=== PATIENT | female | born 1955 | race Caucasian/White ===

== ENCOUNTER 2020-05-28 13:28 | Emergency (ER) | payer BC, SELFPAY ==
[2020-05-28] VITALS (12 sets, daily range): BP systolic 121–174; BP diastolic 66–87; PULSE 67–84; RESP 16–19; TEMP 37; O2SAT 97–100; BMI 31.8
--- NOTE | 2020-05-28 13:33 | ECG_ITS ---
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 Measurements Intervals [place] Rate: 74 P: 37 ID: [id number] QRS: 1 QRSD: 95 T: 18 QT: 369 QTc: 410 Interpretive Statements SINUS RHYTHM INCOMPLETE RIGHT BUNDLE BRANCH BLOCK [90+ ms QRS DURATION, TERMINAL R IN V1/V2, 40+ ms S IN I/aVL/V4/V5/V6] No previous ECG available for comparison Electronically Signed On 05-30-2020 8:04:33 CDT by Amy Shay M.D. [id number]
--- NOTE | 2020-05-28 13:33 | XRR_ITS ---
PROCEDURE INFORMATION: Exam: XR Chest, 1 View Exam date and time: 05/28/2020 1:34 PM Age: 64 years old Clinical indication: Pain; Angina pectoris; Additional info: Chest pain TECHNIQUE: Imaging protocol: XR of the chest Views: 1 view. COMPARISON: No relevant prior studies available. FINDINGS: Lungs: Unremarkable. No consolidation. Pleural space: Unremarkable. No pleural effusion. No pneumothorax. Heart/Mediastinum: Unremarkable. No cardiomegaly. Bones/joints: Dorsal spine dextroscoliosis XR/XR chest 1V portable [id number] IMPRESSION: 1. No acute findings. 2. Dorsal spine dextroscoliosis
--- NOTE | 2020-05-28 13:47 | ED_ITS ---
HPI - Chest Pain General: Chief Complaint: Chest Pain Stated Complaint: cp Time Seen by Provider: 05/28/20 13:34 Source: patient Mode of arrival: ambulatory Limitations: no limitations History of Present Illness: HPI narrative: Ms. Fleming is a nice 64-year-old female who comes in complaining of abrupt onset chest pain while driving. Patient states the discomfort feels like a pressure that radiates up into her jaw and through to her back. She denies any leg pain or swelling. Patient denies having any similar symptoms recently. Patient did get diaphoretic and was nauseated with this. She is unaware if this point of any aggravating or alleviating factors. Patient is not a smoker there is no family history of heart disease. She personally has no history of DVT or PE. Patient has been traveling here from [facility] and the [facility] for vacation. Patient states the pain is been constant since it started at 1:03 PM. Associated symptoms: Reports diaphoresis and dyspnea; Deny abdominal pain, fever(s), palpitations, syncope or vomiting Review of Systems Const: Reports: diaphoresis; Denies: fever(s), chills, body aches, fatigue or malaise Eyes: Denies: change in vision, blurry vision, photophobia, eye discomfort, eye discharge or eye redness ENMT: Denies: throat pain, odynophagia, hoarseness, swelling of lips/tongue, ear or mastoid pain, ear discharge, change in hearing or nasal discharge Card: Reports: chest pain; Denies: palpitations, irregular heart rhythm, edema, lightheadedness, syncope, pre-syncope, dyspnea on exertion or orthopnea Resp: Reports: dyspnea; Denies: productive cough, non-productive cough, wheezing, hemoptysis or chest congestion GI: Denies: abdominal pain, vomiting, hematemesis, coffee ground emesis, heartburn, diarrhea, constipation, GI cramping, hematochezia or melena : Denies: flank pain, dysuria, urinary frequency, urinary urgency or hematuria Musc: Denies: neck pain, back pain, extremity pain, extremity swelling, joint pain, joint swelling, joint redness, joint warmth or joint stiffness Skin/Breast: Denies: rash, pruritus, erythema or skin tenderness Neuro: Denies: headache(s), numbness in extremities, weakness in extremities, sensory changes, lack of coordination, difficulty walking, dizziness, vertigo, confusion, Slurred speech present or seizure-like activity Laureano/Lymph: Denies: easy bruising, easy bleeding, petechiae, purpura or enlarged lymph nodes All/Imm: Denies: urticaria, throat swelling, tongue swelling, facial swelling or acute wheezing PFSH ED PFSH: Medical History (Updated 05/28/20 @ 17:57 by Meredith Cornelius) Anxiety Hyperlipidemia Hypertension Social History (Updated 05/28/20 @ 13:48 by Meredith Cornelius) Smoking and tobacco status: never smoked Physical Exam Const: COMMON NORMALS: no acute distress, patient oriented x3, no limitations, healthy appearing and well nourished GENERAL APPEARANCE: cooperative, well kempt and well developed HENMT: COMMON NORMALS: normocephalic, atraumatic, external ears normal, EAC's normal and Normal external nose present HEAD & SCALP: normal to inspection, normocephalic and atraumatic FACE & SINUS: normal facial exam and face symmetric NOSE: Normal external nose present and Normal nares present EXTERNAL EAR: Yes external ears normal EXTERNAL AUDITORY CANAL: EAC's normal MOUTH: Normal oral and palatal mucosa present, lip normal and tongue normal Eye: COMMON NORMALS: Equal, round and reactive pupils present and conjunctivae normal GENERAL EYE: appearance normal, both eyes and all related structures ALIGNMENT: Yes alignment normal PERIORBITAL: periorbital findings normal EYELID: eyelids normal CONJUNCTIVA: Yes conjunctivae normal SCLERA: sclerae normal PUPIL: Yes Equal, round and reactive pupils present Neck/C-Spine: COMMON NORMALS: full ROM, no lymphadenopathy, supple, no men ingeal signs and no JVD GENERAL: Yes normal visual inspection and Yes trachea midline Chest: COMMONS NORMALS: normal inspection of the chest and normal palpation of entire chest wall Resp: COMMON NORMALS: normal respiratory effort, No retractions, No use of accessory muscles and clear to auscultation bilaterally EFFORT & INSPECTION: Yes able to speak in complete sentences and Yes symmetric chest movement AUSCULTATION: clear to auscultation bilaterally, no crackles, no rales, no rhonchi and no wheezes Cardio: COMMON NORMALS: no JVD, regular rate, regular rhythm, S1 normal heart sound present and S2 normal heart sound present RATE: regular rate RHYTHM: regular rhythm HEART SOUNDS: S1 normal heart sound present, S2 normal heart sound present, no click, no gallops, no murmurs, no rubs and abnormal split S2 GI: COMMON NORMALS: Soft to palpation and No hepatosplenomegaly present PALPATION: Yes Soft to palpation, No Tenderness to palpation present (GI), No Guarding due to palpation present (GI), No Rigid due to palpation, Yes No hepatosplenomegaly present, No Hernia present, No Palpable mass present and No Pulsatile mass present : COMMON NORMALS: Yes no CVA tenderness BLADDER/KIDNEY EXAM: Yes no CVA tenderness EXTERNAL FEMALE EXAM: No Hernia present Back/Pelvis: COMMON NORMALS: no CVA tenderness, thoracic and lumbar spine normal to inspection, no thoracic nor lumbar tenderness and thoraco-lumbar ROM normal Extremity: COMMON NORMALS: normal to inspection, full ROM, capillary refill normal, no joint enlargement, no clubbing, cyanosis or edema and no calf tenderness Neuro: COMMON NORMALS: patient oriented x3, CN's II-XII intact bilaterally, moves all extremities, no focal motor deficits and no sensory deficits noted MENINGEAL SIGNS: Yes no meningeal signs SPEECH: speech normal Psych: COMMON NORMALS: mental status grossly normal, Normal thought process present, cooperative, normal affect, speech normal and activity/motor behavior normal APPEARANCE: Yes well kempt SPEECH: Yes normal speech THOUGHT PROCESS: Normal thought process present Skin: COMMON NORMALS: no rashes or lesions noted, turgor normal, no jaundice, no petechiae and no mottling GENERAL SKIN EXAM: no rashes or lesions noted and turgor normal Course ED course: 1701 -the patient's heart score is a 3. The concerning thing at this time she has continued pain ever since this started the nitroglycerin sublingual's, Nitropaste and morphine have only gotten her pain down to a 3 out of 10. I am going to go ahead and add an ultrasound as the patient has just a minimal bump in her lipase. I am also going to try a GI cocktail. I will add an H. pylori test to her labs as well. I did review the case with Dr. Shay who confirms that we will not be able to do stress test until Saturday as this is a holiday weekend. I discussed with the patient staying for stress test but she is adamant she does not want to stay in the hospital through till Saturday for this test. Vital Signs: Vital signs: Vital Signs Temperature 98.6 F 05/28/20 13:41 Pulse Rate 69 05/28/20 18:01 Respiratory Rate 18 05/28/20 18:01 Blood Pressure 139/80 05/28/20 18:01 Pulse Oximetry 99 05/28/20 18:01 MDM - Chest Pain MDM Narrative: Medical decision making narrative: Ms. Fleming is a very nice 64-year-old female who comes in complaining of chest pain that was abrupt in onset while driving. Per the [place] criteria the patient is low risk and has a negative d-dimer therefore ruling out pulmonary embolism as a cause for her symptoms. The patient has a heart score of 3 but because of continued pain I have recommended she stay in the hospital for formal cardiac rule out but she declines. I have discussed with Mary at length that her symptoms could be related to her heart and she states that she does understand this but she refuses admission to the hospital for formal cardiac rule out. I have tried to get a CTA of the coronary arteries but we do not yet have that ability. The patient's pain is been constant for over 3 hours at this point and with 2- EKGs and 2- sets of cardiac enzymes I believe this rules her out per our hospitalist chest pain pathway. Nonetheless because the patient's pain is continuous I have recommended and offered to put her in the hospital as I have informed her I believe this would be the safest thing but she declines. The patient clearly has the capacity to make this decision but does not want to come in. Her supports her decision. They do understand they can change their mind and return here at any time. Patient agrees to follow-up with her doctor back in [facility] when she returns home. At this time she is feeling better although she still has a chest pain of 2 out of 10. Patient has been in warned but she is also been welcomed to return. Lab Data: Labs: Lab Results 05/28/20 05/28/20 05/28/20 Range/Units 14:13 14:13 14:13 WBC 10.5 H (4.0-10.0) 10^3/ uL RBC 4.79 (4.1-5.3) 10^6/u L Hgb 14.1 (11.5-15.3) g/dL Hct 42.2 (37.0-47.0) % MCV 88.1 (81-99) fL MCH 29.4 (28.0-34.0) pg MCHC 33.4 (30.0-36.0) g/dL RDW 13.2 (12.1-15.1) % Plt Count 302 (130-400) 10^3/c mm MPV 9.3 (7.4-10.4) fL Neut % (Auto) 61.0 % Lymph % (Auto) 29.8 % Mcintosh % (Auto) 7.4 % Eos % (Auto) 0.7 % Baso % (Auto) 0.6 % Neut # (Auto) 6.40 (1.8-7.7) 10^3/u L Lymph # (Auto) 3.1 (0.8-4.8) 10^3/u L Mcintosh # (Auto) 0.8 (0.2-0.9) 10^3/u L Eos # (Auto) 0.1 (0.0-0.8) 10^3/u L Baso # (Auto) 0.1 (0.0-0.1) 10^3/u L Nucleated RBC % (a uto) 0 % Nucleated RBCs # 0.0 /100WBC D-Dimer (0-0.59) ug/mIFE U Sodium 137 (136-145) mmol/L Potassium 4.2 (3.5-5.1) mmol/L Chloride 102 (98-107) mmol/L Carbon Dioxide 25 (22-29) mmol/L Anion Gap 14.2 (5-19) BUN 13 (8-23) mg/dL Creatinine 0.7 (0.5-0.9) mg/dL GFR Calculation 84.8 L (90-130) mL/min Glucose 92 (65-115) mg/dL Calculated Osmolal ity 280 L (285-295) mOsm/k g Calcium 9.4 (8.5-10.5) mg/dL Total Bilirubin 0.5 (0.15-1.2) mg/dL AST 18 (0-32) U/L ALT 29 (0-33) U/L Alkaline Phosphata se 122 H (35-105) IU/L Troponin T Baselin e 6 (0-10) ng/L Troponin T 120 [place] (0-10) ng/L Delta Troponin T (0-10) ABS# Total Protein 6.7 (6.6-8.7) g/dL Albumin 4.4 (3.5-5.2) g/dL Globulin 2.3 (1.3-4.6) g/dL Lipase 76 H (13-60) U/L Urine Color (Yellow) Urine Appearance (CLEAR) Urine pH (5-7) Ur Specific Gravit y (1.005-1.030) Urine Protein (Negative) Urine Glucose (UA) (Normal) Urine Ketones (Negative) Urine Blood (Negative) Urine Nitrate (Negative) Urine Bilirubin (NEGATIVE) Urine Urobilinogen (Negative) mg/dL Ur Leukocyte Pennie ase (Negative) H. pylori IgG Anti body (Negative) 05/28/20 05/28/20 05/28/20 Range/Units 14:13 14:13 14:50 WBC (4.0-10.0) 10^3/ uL RBC (4.1-5.3) 10^6/u L Hgb (11.5-15.3) g/dL Hct (37.0-47.0) % MCV (81-99) fL MCH (28.0-34.0) pg MCHC (30.0-36.0) g/dL RDW (12.1-15.1) % Plt Count (130-400) 10^3/c mm MPV (7.4-10.4) fL Neut % (Auto) % Lymph % (Auto) % Mcintosh % (Auto) % Eos % (Auto) % Baso % (Auto) % Neut # (Auto) (1.8-7.7) 10^3/u L Lymph # (Auto) (0.8-4.8) 10^3/u L Mcintosh # (Auto) (0.2-0.9) 10^3/u L Eos # (Auto) (0.0-0.8) 10^3/u L Baso # (Auto) (0.0-0.1) 10^3/u L Nucleated RBC % (a uto) % Nucleated RBCs # /100WBC D-Dimer 0.42 (0-0.59) ug/mIFE U Sodium (136-145) mmol/L Potassium (3.5-5.1) mmol/L Chloride (98-107) mmol/L Carbon Dioxide (22-29) mmol/L Anion Gap (5-19) BUN (8-23) mg/dL Creatinine (0.5-0.9) mg/dL GFR Calculation (90-130) mL/min Glucose (65-115) mg/dL Calculated Osmolal ity (285-295) mOsm/k g Calcium (8.5-10.5) mg/dL Total Bilirubin (0.15-1.2) mg/dL AST (0-32) U/L ALT (0-33) U/L Alkaline Phosphata se (35-105) IU/L Troponin T Baselin e (0-10) ng/L Troponin T 120 [place] (0-10) ng/L Delta Troponin T (0-10) ABS# Total Protein (6.6-8.7) g/dL Albumin (3.5-5.2) g/dL Globulin (1.3-4.6) g/dL Lipase (13-60) U/L Urine Color Yellow (Yellow) Urine Appearance Clear (CLEAR) Urine pH 7 (5-7) Ur Specific Gravit y 1.010 (1.005-1.030) Urine Protein Neg (Negative) Urine Glucose (UA) Norm (Normal) Urine Ketones Negative (Negative) Urine Blood Neg (Negative) Urine Nitrate Negative (Negative) Urine Bilirubin Neg (NEGATIVE) Urine Urobilinogen Norm (Negative) mg/dL Ur Leukocyte Pennie ase Negative (Negative) H. pylori IgG Anti body Negative (Negative) 05/28/20 Range/Units 16:21 WBC (4.0-10.0) 10^3/ uL RBC (4.1-5.3) 10^6/u L Hgb (11.5-15.3) g/dL Hct (37.0-47.0) % MCV (81-99) fL MCH (28.0-34.0) pg MCHC (30.0-36.0) g/dL RDW (12.1-15.1) % Plt Count (130-400) 10^3/c mm MPV (7.4-10.4) fL Neut % (Auto) % Lymph % (Auto) % Mcintosh % (Auto) % Eos % (Auto) % Baso % (Auto) % Neut # (Auto) (1.8-7.7) 10^3/u L Lymph # (Auto) (0.8-4.8) 10^3/u L Mcintosh # (Auto) (0.2-0.9) 10^3/u L Eos # (Auto) (0.0-0.8) 10^3/u L Baso # (Auto) (0.0-0.1) 10^3/u L Nucleated RBC % (a uto) % Nucleated RBCs # /100WBC D-Dimer (0-0.59) ug/mIFE U Sodium (136-145) mmol/L Potassium (3.5-5.1) mmol/L Chloride (98-107) mmol/L Carbon Dioxide (22-29) mmol/L Anion Gap (5-19) BUN (8-23) mg/dL Creatinine (0.5-0.9) mg/dL GFR Calculation (90-130) mL/min Glucose (65-115) mg/dL Calculated Osmolal ity (285-295) mOsm/k g Calcium (8.5-10.5) mg/dL Total Bilirubin (0.15-1.2) mg/dL AST (0-32) U/L ALT (0-33) U/L Alkaline Phosphata se (35-105) IU/L Troponin T Baselin e (0-10) ng/L Troponin T 120 [place] 6.00 (0-10) ng/L Delta Troponin T 0 (0-10) ABS# Total Protein (6.6-8.7) g/dL Albumin (3.5-5.2) g/dL Globulin (1.3-4.6) g/dL Lipase (13-60) U/L Urine Color (Yellow) Urine Appearance (CLEAR) Urine pH (5-7) Ur Specific Gravit y (1.005-1.030) Urine Protein (Negative) Urine Glucose (UA) (Normal) Urine Ketones (Negative) Urine Blood (Negative) Urine Nitrate (Negative) Urine Bilirubin (NEGATIVE) Urine Urobilinogen (Negative) mg/dL Ur Leukocyte Pennie ase (Negative) H. pylori IgG Anti body (Negative) Imaging Data^: CXR: Attestation: I personally reviewed and interpreted this imaging study as follows: My impression: No acute cardiopulmonary findings. US: My impression: Ultrasound abdomen, tech interpretation -gallbladder polyp present. Otherwise no acute findings. EKG Data^: EKG 1: Attestation: I personally reviewed and interpreted this EKG as follows: EKG interpretation date: 05/28/20 EKG interpretation time: 13:51 Interpretation: Normal sinus rhythm at 74 beats a minute, normal intervals, incomplete right bundle branch block, no acute ST or T wave changes. EKG 2: Attestation: I personally reviewed and interpreted this EKG as follows: EKG interpretation date: 05/28/20 EKG interpretation time: 16:50 Interpretation: Normal sinus rhythm at 66 beats a minute, incomplete right bundle branch block, normal axis, normal QTC, no acute ST or T wave changes. Discharge Plan Discharge Patient Disposition: Left Against Medical Advice Clinical Impression: Chest pain Qualifiers: Chest pain type: unspecified Qualified Code(s): R07.9 - Chest pain, unspecified Condition: Stable Prescriptions: New Protonix 40 mg tablet,delayed release (DR/EC) 40 mg PO DAILY 28 Days RF: 0 aspirin 325 mg tablet 325 mg PO DAILY Qty: 30 RF: 0 No Action atorvastatin 20 mg tablet 20 mg PO DAILY RF: 0 clonazepam 1 mg tablet 1 mg PO BEDTIME RF: 0 trazodone 100 mg tablet 100 mg PO BEDTIME RF: 0 lisinopril 40 mg tablet 40 mg PO DAILY RF: 0 duloxetine 60 mg capsule,delayed release(DR/EC) 60 mg PO BID RF: 0 Vyvanse 50 mg capsule 50 mg PO DAILY RF: 0 Discharge Orders: Discharge Order (Routine); Ordered 05/28/20 Ordered By: Meredith Cornelius Referrals: Amy Shay MD [Physician] - 1-3 days Discharge Diet: Advance as tolerated Discharge Activity: Limit activity as instructed Patient Instructions: Chest Pain (ED), Abdominal Pain (ED) Activity Restrictions/Additional Instructions: Please return to the ER immediately for any of the signs or symptoms listed on your discharge instruction sheets, worsening/changing of your symptoms, you are not getting better as quickly as expected, or for ANY other cause or concerns. I have recommended and offered to evaluate you further by admission to the hospital for formal cardiac rule out, stress testing, lookback coordinator consult but you have declined. You have also declined a CT of the abdomen and pelvis as well as further observation in the ER to formally rule out a heart attack as a cause for your symptoms. Of course any type of heart problem can be life- threatening and your risk of or severe permanent disability by leaving without complete evaluation. If you change your mind, your symptoms return, you develop new concerning symptoms or you simply change your mind you are more than welcome to return to the ER at any time for further evaluation and care. I have offered to observe you further so PLEASE return to the ER if your symptoms return or you change your mind. Be certain to follow-up with your doctor at home as soon as possible to have further evaluation and care for your symptoms today. 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
[2020-05-28] MEDS: aspirin 325 mg Tablet PO (14:17)
[2020-05-28 14:23] LABS: Basophils # 0.1 10^3/uL (0.0-0.1); Basophils % 0.6 %; Eosinophils # 0.1 10^3/uL (0.0-0.8); Eosinophils % 0.7 %; Hematocrit 42.2 % (37.0-47.0); Hemoglobin 14.1 g/dL (11.5-15.3); Lymphocytes # 3.1 10^3/uL (0.8-4.8); Lymphocytes % 29.8 %; Mean Corpuscular HGB Conc 33.4 g/dL (30.0-36.0); Mean Corpuscular Hemoglobin 29.4 pg (28.0-34.0); Mean Corpuscular Volume 88.1 fL (81-99); Mean Platelet Volume 9.3 fL (7.4-10.4); Monocytes # 0.8 10^3/uL (0.2-0.9); Monocytes % 7.4 %; Nucleated Red Blood Cells % 0 %; Platelet Count 302 10^3/cmm (130-400); Red Blood Count 4.79 10^6/uL (4.1-5.3); Red Cell Distribution Width 13.2 % (12.1-15.1); White Blood Count 10.5 10^3/uL (4.0-10.0)
[2020-05-28] MEDS: sodium chloride 0.9% 1,000 ML 100 ML IV (14:25)
[2020-05-28] MEDS: ondansetron 2 mg/ML SDV 2 mL 4 MG IVP (14:31)
[2020-05-28] MEDS: nitroglycerin 0.4 mg sublingual Tablet SUBLINGUAL ×3 (14:35→15:00)
[2020-05-28 14:36] LABS: D Dimer 0.42 ug/mIFEU (0-0.59)
[2020-05-28 14:45] LABS: Alanine Aminotransferase 29 U/L (0-33); Albumin Level 4.4 g/dL (3.5-5.2); Alkaline Phosphatase 122 IU/L (35-105); Anion Gap 14.2 (5-19); Aspartate Amino Transferase 18 U/L (0-32); Blood Urea Nitrogen 13 mg/dL (8-23); Calcium 9.4 mg/dL (8.5-10.5); Carbon Dioxide 25 mmol/L (22-29); Chloride 102 mmol/L (98-107); Creatinine Clr Calc Pharmacy 84.3204; Globulin 2.3 g/dL (1.3-4.6); Glomerular Filtration Rate 84.8 mL/min (90-130); Glucose 92 mg/dL (65-115); Lipase 76 U/L (13-60); Osmolality Calculated 280 mOsm/kg (285-295); Potassium 4.2 mmol/L (3.5-5.1); Sodium 137 mmol/L (136-145); Total Bilirubin 0.5 mg/dL (0.15-1.2); Total Protein 6.7 g/dL (6.6-8.7)
[2020-05-28 14:47] LABS: Troponin(5th) Baseline 6 ng/L (0-10)
[2020-05-28 15:00] LABS: Add Urine Microscopic? NO
[2020-05-28 15:08] LABS: Bilirubin Urine Neg (NEGATIVE); Blood Urine Neg (Negative); Glucose Urine UA Norm (Normal); Ketones Urine Negative (Negative); Leukocyte Esterase Urine Negative (Negative); Nitrate Urine Negative (Negative); Protein Urine Neg (Negative); Urine Appearance Clear (CLEAR); Urine Color Yellow (Yellow); Urobilinogen Urine Norm (Negative); pH Urine 7 (5-7)
--- NOTE | 2020-05-28 15:33 | ECG_ITS ---
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 Measurements Intervals [place] Rate: 66 P: 40 CT: 172 QRS: 6 QRSD: 94 T: 19 QT: 402 QTc: 422 Interpretive Statements SINUS RHYTHM INCOMPLETE RIGHT BUNDLE BRANCH BLOCK [90+ ms QRS DURATION, TERMINAL R IN V1/V2, 40+ ms S IN I/aVL/V4/V5/V6] Compared to ECG 05/28/2020 13:51:11 No significant changes Electronically Signed On 05-30-2020 8:30:22 CDT by Amy Shay M.D. [id number]
[2020-05-28] MEDS: morphine 4 mg/mL SDV 1 mL IVP (16:02)
[2020-05-28] MEDS: nitroglycerin 1 gm/inch oint Pkt 1 INCH TOPICAL (16:03)
[2020-05-28 16:47] LABS: Troponin 5 2HR Delta 0 ABS# (0-10)
--- NOTE | 2020-05-28 16:59 | USR_ITS ---
PROCEDURE INFORMATION: Exam: US Abdomen Complete Exam date and time: 05/28/2020 5:38 PM Age: 64 years old Clinical indication: Abdominal pain; Epigastric TECHNIQUE: Imaging protocol: Real-time ultrasound of the abdomen with image documentation. COMPARISON: No relevant prior studies available. FINDINGS: Liver: Normal. No mass. 14.7 cm Gallbladder: there is a polyp in the gallbladder neck. No gallstones. There is no gallbladder wall thickening. Common bile duct: Normal. No stones. 4.3 mm Pancreas: Visualized pancreas is unremarkable. Pancreatic tail obscured by bowel gas. Right kidney: Normal. No mass. No hydronephrosis. 11 cm x 3.5 cm x 3.9 cm Left kidney: Normal. No mass. No hydronephrosis. 11 cm x 4 cm x 5 cm Spleen: Normal. No splenomegaly. 10.4 cm Aorta: Normal. No aneurysm. 2 cm Inferior vena cava: Normal. 1.4 cm US/US abdomen complete* [id number] IMPRESSION: 1. Gallbladder polyp in the neck of the gallbladder 2. Otherwise negative abdominal sonogram.
--- NOTE | 2020-05-28 17:21 | PC.NURSE ---
ULTRASOUND AT BEDSIDE. PATIENT REPORTS 3/10 PAIN PRESENT, UPDATED ON POC. VO FROM DR. HALL TO HOLD GI COCKTAIL UNTIL AFTER US COMPLETED.
[2020-05-28] MEDS: lidocaine 2% viscous 15 ML, aluminum-mag hydrox-simethicon 30 ML, sucralfate oral liq 1 GM PO (17:50)
[2020-05-28 17:55] LABS: H. Pylori IgG Antibody Negative (Negative)
--- NOTE | 2020-05-28 18:05 | PC.NURSE ---
DR. HALL AT BEDSIDE WITH PATIENT DISCUSSING POC, PATIENT RECOMMENDED FOR ADMISSION FOR OBSERVATION AND CONTINUED CARDIAC MONITORING AND STRESS TEST. PATIENT DECLINES ADMISSION. SHE VERBALIZES UNDERSTANDING OF POTENTIAL RISKS
== END 2020-05-28 18:46 | disposition left against medical advice (07) ==
PROVIDERS: Physician Assistant; Emergency Provider Emergency Medicine
DX: R07.9 Chest pain, unspecified (principal); Z53.21 Procedure and treatment not carried out due to patient leaving prior to being seen by health care provider; E78.5 Hyperlipidemia, unspecified; I10 Essential (primary) hypertension
CPT/HCPCS: 12345; 36415; 71045; 76700; 80053; 81003; 83690; 84484; 85025; 85378; 86677; 93005; 96361; 96374; 96375; 99283; 99284; J2270; J2405; J7030